=== PATIENT | male | born 1990 | race African-American/Black ===

== ENCOUNTER 2019-08-03 12:34 | Emergency (ER) | payer OTHER, SELFPAY ==
[2019-08-03] MEDS ORDERED: Lidocaine 1% PF 5 ML VIAL ONE (13:05)
[2019-08-03] MEDS ORDERED: cefTRIAXone\\ROCEPHIN 250 MG VIAL ONE (13:05)
[2019-08-03] MEDS ORDERED: Azithromycin 250 MG TAB ONE (13:07)
== END 2019-08-03 13:30 | disposition home or self-care (01) ==
LOC: ERS 12:34
DX: Z20.2 Contact with and (suspected) exposure to infections with a predominantly sexual mode of transmission (principal)
CPT/HCPCS: 96372; 99283; J0696; J2001